=== PATIENT | male | born 1970 | race Caucasian/White ===

== ENCOUNTER 2024-07-22 15:46 | Emergency (ER) | payer SELFPAY ==
[2024-07-22 15:49] VITALS: BP 121/82
--- NOTE | 2024-07-22 16:39 | ED.GENMED ---
History of Present Illness
General
Chief Complaint: Musculo-Skeletal Complaint
Source: patient
Time Seen by Provider: 07/22/24 16:30
History of Present Illness
History of Present Illness:
54-year-old male presenting to the emergency department for evaluation after he accidentally shot his left finger with a nail gun with the nail remaining in place. Patient unsure of last tetanus. [id number]. No other injuries were
sustained.
Past History
Past History
ED Past Medical History: Hypercholesterolemia
ED Past Surgical History: None
Social History
Tobacco: Non-smoker
Alcohol: None
Drug: None
Personal:
Living: with family
Review of Systems
Review of Systems
All Other Systems: ROS reviewed and negative except as documented in HPI and ROS
Phy Exam
Physical Exam
Physical Exam:
GENERAL: Alert , in no apparent distress
EYE: conjunctiva clear
Head: Normocephalic atraumatic
NECK: Supple,
ENT: mmm.
LUNGS: no acute respiratory distress
NEUROLOGICAL: Alert and oriented
SKIN: Warm and dry, approximately 2 cm nail within the soft tissues of the distal left thumb. No active bleeding. Sensation grossly intact to light touch
MUSCULOSKELETAL: well perfused.
PSYCH: Normal and appropriate interaction.
Scores
Heart Failure Risk
Heart Failure Risk Score: Not Applicable
Heart Score for Chest Pain Patients
STEMI patient?: Not applicable
Withdrawal Assessment of Alcohol
Withdrawal Assessment Completed?: Not applicable
Course
Orders/Labs/Results
Orders:
Orders
07/22/24 15:59
CR Finger(s)/thumb Min 2 Vw Lt Urgent
Comment:
Reason For Exam: nail in thumb from nail gun
07/22/24 16:39
Tetanus/Diphth/Acelpertussis [Adacel] 0.5 ml IM .ONCE ONE
Vital Signs
Initial and Last Documented VS:
Initial Vital Signs
Temp Pulse Resp BP Pulse Ox
98 F 80 18 121/82 98
07/22/24 15:49 07/22/24 15:49 07/22/24 15:49 07/22/24 15:49 07/22/24 15:49
Last Documented Vital Signs
Temp Pulse Resp BP Pulse Ox
98 F 80 18 121/82 98
07/22/24 15:49 07/22/24 15:49 07/22/24 15:49 07/22/24 15:49 07/22/24 15:49
Procedures
Foreign Body Removal-Skin
Wound explored and foreign body removed?: Yes
Foreign body removed using: forceps
Foreign body removed: completely
MDM/Problems Addressed
MDM/Problems Addressed:
54-year-old male presenting to the ER for evaluation of foreign body within the left distal thumb. Foreign body removed without any difficulty as above. Patient's thumb was irrigated with normal saline and Betadine solution following. Will place
patient on Keflex for 5 days. Will update tetanus. Patient otherwise stable for discharge home and aware of return precautions to the ER.
*Radiology
Radiology exam reviewed: preliminary read by ED provider (Foreign body within the soft tissues of the left thumb, no fracture)
*Pulse Oximetry
Patient hypoxic: no
*Critical Care Note
Total Time (30-74mins, 75-104mins- exclusive of procedures): Not Applicable
ED Attending Note
-
Portions of this chart may have been created with voice recognition software.� Occasional wrong word or��sound alike� substitutions may have occurred due to the inherent limitations of voice recognition software.
Discharge Plan
Departure
Patient Disposition: Home (Routine Discharge)
Date of Disposition: 07/22/24
Time of Disposition: 16:39
Patient with high blood pressure during this ER visit?: No
Discharge Problem:
Acute foreign body of left thumb
Instructions: Foreign Body in Skin (DC)
Prescriptions:
New
cephalexin 500 mg tablet
500 mg PO BID 5 Days Qty: 10 0RF
Interventions
Interventions:
*Risk Screen - Suicide Last Done: 07/22/24 15:49
*General Assessment Last Done: 07/22/24 15:49
*Neglect/Abuse Screening Last Done: 07/22/24 15:49
*ED COVID-19 Vaccine History Last Done: 07/22/24 15:49
Discharge Date and Time
Print Language: [id number]
[2024-07-22] MEDS: ADACEL 0.5 ML IM (16:50)
[2024-07-22 17:08] VITALS: BP 130/85
== END 2024-07-22 17:09 | disposition home or self-care (01) ==
LOC: EMR 15:46
PROVIDERS: EMERGENCY PHYSICIAN Emergency Medicine; FAMILY PHYSICIAN Physician Assistant Medical
DX: S61.042A Puncture wound with foreign body of left thumb without damage to nail, initial encounter (principal); W45.0XXA Nail entering through skin, initial encounter; W29.4XXA Contact with nail gun, initial encounter; Z23 Encounter for immunization
CPT/HCPCS: 99283; 90471; 73140; 90715